=== PATIENT | male | born 1990 | race Caucasian/White ===

== ENCOUNTER 2017-09-20 20:12 | Emergency (ER) | payer SELFPAY ==
[~2017-09-20] VITALS: Ht 182.9 cm; Wt 108.9 kg
[2017-09-20 20:18] VITALS: Ht 182.9 cm; Wt 108.9 kg
[2017-09-20 21:35] VITALS: BP 116/65
== END 2017-09-20 21:35 | disposition home or self-care (01) ==
LOC: ED 20:12
DX: T78.1XXA Other adverse food reactions, not elsewhere classified, initial encounter (principal); I10 Essential (primary) hypertension; X58.XXXA Exposure to other specified factors, initial encounter